=== PATIENT | female | born 2000 | race Caucasian/White ===

== ENCOUNTER 2021-10-03 12:43 | Outpatient (CLI) | payer BC, SELFPAY | END 2021-10-03 12:44 | disposition home or self-care (01) | PROVIDERS: Visit Provider Neurological Surgery | DX: M51.26 Other intervertebral disc displacement, lumbar region (principal); Z01.818 Encounter for other preprocedural examination | CPT/HCPCS: 36415; 86850; 86900; 86901 ==

== ENCOUNTER 2021-10-06 00:15 | Day surgery (SDC) | payer BC, SELFPAY ==
[2021-09-29 15:16] VITALS: BMI 50.1
--- NOTE | 2021-09-29 15:24 | PC.NURSE ---
Report to the Outpatient Waiting Room, entrance under the green pavilion located off [facility], at time __10:00AM__ on date ___10-06-21_. OR Time: __12:00PM__. - You and your visitor will be asked a series of questions to screen for COVID 19 for your protection. - Only one visitor is allowed at this time. - The patient visitor is requested to leave or wait in car when not with patient. - A mask is required within the hospital. Patients may have clear liquids (water, carbonated beverages, clear teas, apple juice) until 3 hours prior to surgery with a maximum of 20 ounces. NOTHING TO DRINK AFTER 9:00AM - No food from midnight until time of surgery Take the following medications with a SIP of water the morning of surgery: PAIN MEDICINE NEEDED Medications to discontinue per physician Date to take last dose Please no make-up, nail romanian, hairspray, perfume, deodorant, or body powder the day of surgery. No jewelry (including any body piercings) or valuables the day of surgery, leave them at home. Please take a shower or bath the night before, or the morning of, surgery with an antibacterial soap. Wear comfortable, loose fitting clothing. Children are encouraged to wear pajamas. - Jewelry must be removed prior to entering the operating room. Rings and piercings that are not removed may be cut off. - The hospital will not accept responsibility for valuables. - Please leave all valuables, including medications, at home the day of surgery. If you are going home after surgery, a licensed hammer driver must drive you home. - NO public transportation without another adult. - We recommend that an adult stay with you for 24 hours following discharge. - We also recommend that you do not drive, make important decision, drink alcoholic beverages, or take any drugs that were not prescribed by your health care provider for at least 24 hours after your discharge time. Follow any additional instructions given to you from your surgeon. If you or anyone in your household have experienced Covid symptoms in the past week, please notify your surgeon or the nurse liaison at the phone number below for possible testing. Telephone instructions given to ___PATIENTS and asked if any additional questions and then verbalized understanding. Patient advised to call surgeon office or pre surgery nurse liaison [phone] if any additional questions.
[2021-10-06] VITALS (8 sets, daily range): BP systolic 108–146; BP diastolic 52–96; PULSE 81–118; RESP 12–20; TEMP 36.1–36.3; O2SAT 95–99
--- NOTE | ~2021-10-06 | XR_ITS ---
EXAMINATION: XR fluoroscopy no charge DATE: 10/06/2021 14:15 INDICATION: Lumbar disc herniation. TECHNIQUE: A single lateral intraoperative fluoroscopic view of the lumbar spine was obtained. I was not present. Fluoroscopy exposure time was 8 seconds. COMPARISON: None. FINDINGS: There is an instrument posterior to L3-L4. IMPRESSION: 1. Instrument posterior to L3-L4. Reviewed, dictated and finalized at location A.
[2021-10-06] MEDS: LACTATED RINGERS 1,000 ML 30 ML IV CONT ×2 (10:25→14:27)
--- NOTE | 2021-10-06 10:37 | P.PNAN_ITS ---
Anes - Initial Pre Proc Eval Procedure: Operation Date: 10/06/21 12:00 Proposed Procedures p Left L3-4 Microscopic Lumbar Discectomy - Willy Smith MD Date/Time: 10/06/21 10:37 Surgeon: Willy Smith MD Pre Op Diagnosis: Lumbar Disc Herniation Patient Data Age: 21 Gender: F Height: 1.7 m Weight: 146.2 kg Allergies Allergy/AdvReac Type Severity Reaction Status Date / Time No Known Allergies Allergy Verified 10/06/21 09:56 Home Medications Medication Instructions Recorded Confirmed Type cyclobenzaprine 5 mg tablet 1 tablet PO BID PRN Muscle Spasm 09/29/21 10/06/21 History hydrocodone 5 mg-acetaminophen 325 1 tablet PO BID PRN Pain 09/29/21 10/06/21 History mg tablet norethindrone 1.5 mg-ethinyl 1 tablet PO DAILY 09/29/21 10/06/21 History estradiol 30 mcg(21)/iron 75 mg(7) tablet (June FE 1.5/30 (28)) Patient hx anesthesia problems: none Family hx anesthesia problems: none Results Review: All pre-operative results and documents have been reviewed as part of the pre- operative evaluation. [facility] Social History Social History Smoking status: Never smoker Second hand tobacco smoke exposure: Yes Alcohol intake: never Substance use: never Substance use type: does not use Living arrangements: with family Spiritual care concerns: No Anes - Eval Final PreProcedure Day of Procedure 10/06/21 10:37 Patient weight: super morbidly obese Heart: regular rate and rhythm Lungs: clear to auscultation Airway: Mallampati scale class II Neurological: alert and oriented Last oral intake: >/= 8 hours ASA classification: III Emergent: no Anesthetic plan: proceed Anesthesia type and monitoring: general ETT and standard monitoring Results Review: All pre-operative results and documents have been reviewed as part of the pre- operative evaluation. Informed Consent: The patient's anesthetic plan and its attendant risks and benefits were discussed with the patient/family/POA. Questions were solicited and answers provided to the satisfaction of the patient/family/POA.
--- NOTE | 2021-10-06 12:19 | WPDHPUPDATE1 ---
History and Physical Update Update Date/Time: 10/06/21 12:19 History and Physical has been reviewed, including an updated exam of the patient. There are NO changes in the patient's condition. Risks, benefits, and alternatives have been discussed and questions answered. Patient agrees to proceed with procedure.
--- NOTE | 2021-10-06 12:20 | P.HP_ITS ---
H&P: HPI History of Present Illness Date/Time: 10/06/21 12:20 Chief Complaint: Back and leg pain Narrative: Ms. Reddy is a 21-year-old female with a left L3-4 disc herniation causing back and leg pain who presents for decompression. She is not different than when we saw her last. She is not having any new bowel or bladder issues. She has no specific muscle group weakness. She has occasional dermatomal numbness. Review of Systems Review of Systems: Patient denies shortness of breath, cough, fever, chills, nausea, vomiting, weight loss, weight gain, urinary or bowel disturbance, chest pain. She has back and leg pain and stiffness as above. She is negative on 12 systems otherwise. [facility] Social History Social History Smoking status: Never smoker Second hand tobacco smoke exposure: Yes Alcohol intake: never Substance use: never Substance use type: does not use Living arrangements: with family Spiritual care concerns: No Meds Home Medications and Allergies Home Medications Medication Instructions Recorded Confirmed Type cyclobenzaprine 5 mg tablet 1 tablet PO BID PRN Muscle Spasm 09/29/21 10/06/21 History hydrocodone 5 mg-acetaminophen 325 1 tablet PO BID PRN Pain 09/29/21 10/06/21 History mg tablet norethindrone 1.5 mg-ethinyl 1 tablet PO DAILY 09/29/21 10/06/21 History estradiol 30 mcg(21)/iron 75 mg(7) tablet (Junel FE 1.5/30 (28)) Allergies Allergy/AdvReac Type Severity Reaction Status Date / Time No Known Allergies Allergy Verified 10/06/21 09:56 Vital Signs Vital Signs - 24 hr 10/06/21 10:40 Temperature 96.9 F L Pulse Rate 118 H Respiratory Rate 20 Blood Pressure 139/94 H Pulse Oximetry 99 Oxygen Delivery Room Air Exam Narrative: Patient is a normally developed, a normal appearing obese white female supine in a hospital bed in no acute distress. She is awake, alert, o riented x3, with good fund of knowledge, recall of events and fluent speech. Her face is symmetrical, tongue is midline, her pupils are equal reactive to light, extraocular movements are intact. She has no upper extremity drift, dysmetria or dyspraxia Strength is 5/5 in all muscle groups of the bilateral lower extremities. Sensation was intact to light touch throughout the lower extremities. Clear to auscultation Regular rate and rhythm Assessment and Plan Assessment and plan (1) Lumbar disc herniation: Code(s): M51.26 - Other intervertebral disc displacement, lumbar region Status: Acute Plan Ms. Reddy is a 21-year-old female with a left L3-4 herniated nucleus pulposus presents for microscopic lumbar diskectomy. I described to her again that operation, its risks, potential benefits, the operative and postoperative course in detail and answered all her questions personally. She indicates understanding and elects to proceed with that operation.
[2021-10-06] MEDS: ceFAZolin 3 GM/D5W 100 ML 100 ML IVPB (12:38)
[2021-10-06] MEDS: LIDO 1%/EPINEPHRINE 1:100,000 20 ML VIAL 10 ML INFILTRATE (13:20)
--- NOTE | 2021-10-06 14:25 | W.PM.PROC2 ---
Procedure Note - Detailed Date of Procedure 10/06/21 Pre-op Diagnosis Lumbar Disc Herniation Post-op Diagnosis Same Procedure Performed Left L3-4 microscopic lumbar diskectomy Surgeon Willy Smith MD [facility] Attendant [place] Anesthesia General Indications Ms. Reddy is a 21-year-old female with back and leg pain related to a disc herniation on the left at L3-4 who presents for decompression. Findings Disc herniation Description of Procedure The patient was brought to the operating room in the supine position, was sedated, intubated and placed under general anesthesia in routine fashion. She was then turned into the prone position on a open Chidi table. The area of operation on her back was examined, marked for incision, prepped and draped in routine sterile fashion. Incision was marked over the L3 and L4 spinous processes in the midline. This area was injected with 0.5% lidocaine with [id number] epinephrine. Intravenous antibiotics given prior to incision. Incision was made with a 10 blade scalpel down to the lumbodorsal fascia. A subperiosteal dissection the muscle soft tissue with the spinous process and lamina at L3-4 on the left was performed a Hohmann atrially and subperiosteal elevator and Bovie cautery. A verifying x-rays obtained to verify the level of operation. At L3-4 on the left the Midas-Constantino drill was used to perform a hemilaminectomy and medial facetectomy. Under microscopy the yellow ligament was lifted and removed piecemeal using Kerrison punches. The thecal sac was then retracted medially exposing subligamentous disc herniation below. The ligament was entered using 11 blade scalpel. An Berry curette curved curette No rongeur and nerve hook were used to push free and removed fragments of herniated disc from beneath the nerve. The nerve was followed toward its foramen and unroofed. A dental instrument and a nerve hook were used to feel underneath the nerve and in the foramen to confirm lack of compression which was confirmed. The wound was then copiously irrigated with bacitracin irrigation all bleeding was stopped with bipolar and Bovie cautery and Gelfoam thrombin powder. The wound was then closed in layered fashion with 2-0 Vicryl interrupted sutures in the lumbodorsal fascia and Jackson's layer. 3-0 Vicryl. Interrupted sutures were placed in the dermis and the skin was closed with a running 4-0 Monocryl subcuticular stitch and dressed with benzoin, Dermabond and Telfa and Tegaderm dressing. The patient was then allowed to wake up in the operating room and was taken to the recovery room in stable condition. There were no immediate complications of this operation. All counts were reported correct at the end of the case. Blood loss was 240 cc. The patient was neurologically at her baseline postoperatively. Estimated Blood Loss 240 IV Fluids 1,000 Complications None Condition Stable Disposition PACU
--- NOTE | 2021-10-06 14:40 | SUR.PHASEI ---
1432- Oral airway removed
[2021-10-06] MEDS: fentaNYL CITRATE INJ (*CRX) 100 MCG/2 ML VIAL 25 MCG IV PUSH ×6 (14:47→15:13)
[2021-10-06 15:10] LABS: HIV 1/2 Ab P24 Ag Result Negative (Negative); Hepatitis B Surface Anti Res Negative; Hepatitis C Virus Antibody Negative (Negative)
[2021-10-06] MEDS: oxyCODONE HCL (*CRX) 5 MG TAB IR PO (15:50)
== END 2021-10-06 16:41 | disposition home or self-care (01) ==
PROVIDERS: Visit Provider Neurological Surgery
PROC: (CPT 63030; principal; 2021-10-06 12:00)
DX: M51.26 Other intervertebral disc displacement, lumbar region (principal); M79.605 Pain in left leg; Z11.4 Encounter for screening for human immunodeficiency virus [HIV]; E66.01 Morbid (severe) obesity due to excess calories; Z68.43 Body mass index [BMI] 50.0-59.9, adult; Z79.891 Long term (current) use of opiate analgesic
CPT/HCPCS: 63030; 36415; 86703; 86706; 86803; 99199; A9270; G0432; J0690; J1100; J2250; J2405; J2704; J2710; J3010; J7120

== ENCOUNTER 2023-07-16 17:44 | Emergency (ER) | payer BC, SELFPAY ==
--- NOTE | ~2023-07-16 | XR_ITS ---
EXAM: XR hand RT min 3V DATE: 07/16/2023 18:50 HISTORY: fall . COMPARISON: None available. FINDINGS: Normal mineralization. No fracture or dislocation. Hyperextended third and fifth PIP joint s. No lytic or blastic lesion. Joint spaces are maintained. No erosion or periosteal change. Soft tis sues within normal limits. IMPRESSION: Hyperextended third and fifth PIP joints, may reflect soft tissue injury, correlate for p ain/tenderness. Reviewed, dictated and finalized at location K. IMPRESSION: Hyperextended third and fifth PIP joints, may reflect soft tissue i njury, correlate for pain/tenderness.
--- NOTE | ~2023-07-16 | XR_ITS ---
EXAM: XR knee LT min 4V DATE: 07/16/2023 18:50 HISTORY: fall . COMPARISON: None available. FINDINGS: Normal mineralization. No fracture or dislocation. No lytic or blastic lesion. Mild medial compartment osteoarthritic change. Mild quadriceps enthesopathy. No erosion or periosteal change. So ft tissues within normal limits. IMPRESSION: No acute osseous finding in the left knee. Reviewed, dictated and finalized at location K.
[2023-07-16 18:00] VITALS: BP 172/90; PULSE 99; RESP 20; TEMP 36.6; O2SAT 100
--- NOTE | 2023-07-16 19:37 | ED.GENADULT ---
HPI - General Adult General Chief complaint: Extremity Injury, Lower Stated complaint: fall, pain to left leg Time Seen by Provider: 07/16/23 19:00 History of Present Illness HPI narrative: This is a 22-year-old female presenting after a ground level fall. She fell onto her left knee and right hand. She has some pain to the area and minor abrasions. She is concerned she had some loss of sensation below the left knee. No motor deficits. Related Data Home Medications Medication Instructions Recorded Confirmed norethindrone 1.5 mg-ethinyl 1 tablet PO DAILY 09/29/21 10/06/21 estradiol 30 mcg(21)/iron 75 mg(7) tablet (Junel FE 1.5/30 (28)) Allergies Allergy/AdvReac Type Severity Reaction Status Date / Time No Known Allergies Allergy Verified 07/16/23 18:06 [facility] Past Medical History Medical History Hidradenitis Lumbar disc herniation Surgical History Surgical History H/O Spinal surgery Family History Family History Other Hypertension Social History Social History Smoking status: Never smoker Second hand tobacco smoke exposure: Yes Alcohol intake: never Substance use: never Substance use type: does not use Living arrangements: with family Spiritual care concerns: No Exam Narrative: APPEARANCE: No apparent distress. Head: atraumatic. EYES: EOMI, NOSE: Atraumatic NECK: Trachea midline RESPIRATORY: No increased rate of breathing CARDIOVASCULAR: RRR, ABDOMINAL: Non-distended MUSCULOSKELETAl: Minor abrasion over the left knee. Patient is neurovascular intact in lower extremities. minor abrasions over the right hand. Extension and flexion intact in all fingers. Cap refill. NEURO: Alert. Moving 4/4 extremities SKIN:: Warm, dry. Normal color PSYCHIATRIC: Normal affect Course Vital Signs Vital signs: Vital Signs Temperature 97.8 F 07/16/23 18:00 Pulse Rate 99 07/16/23 18:00 Respiratory Rate 20 07/16/23 18:00 Blood Pressure 172/90 H 07/16/23 18:00 Pulse Oximetry 100 04/29/24 18:00 Oxygen Delivery Room Air 07/16/23 18:00 Temperature 97.8 F 07/16/23 18:00 Pulse Rate 99 07/16/23 18:00 Respiratory Rate 20 07/16/23 18:00 Blood Pressure 172/90 H 07/16/23 18:00 Pulse Oximetry 100 07/16/23 18:00 Oxygen Delivery Room Air 07/16/23 18:00 Medical Decision Making [facility] Narrative Medical decision making narrative: -Course: 22-year-old female presenting after a ground level fall with knee pain and hand pain. X-rays negative for fracture. Physical exam unremarkable patient has some loss of sensation over her gonzalez but no motor deficits. Patient will be trialed on a course of NSAID and primary care follow-up. -DDX includes but is not limited to: Soft tissue injury, bony injury -Independent interpretation of studies: X-rays negative for fracture -Interventions: Tylenol -Shared decision making / Disposition:discharged -RX tylenol Vital Signs Vital Signs: Vital Signs Temperature 97.8 F 07/16/23 18:00 Pulse Rate 99 07/16/23 18:00 Respiratory Rate 20 07/16/23 18:00 Blood Pressure 172/90 H 07/16/23 18:00 Pulse Oximetry 100 07/16/23 18:00 Oxygen Delivery Room Air 07/16/23 18:00 Temperature 97.8 F 07/16/23 18:00 Pulse Rate 99 07/16/23 18:00 Respiratory Rate 20 07/16/23 18:00 Blood Pressure 172/90 H 07/16/23 18:00 Pulse Oximetry 100 07/16/23 18:00 Oxygen Delivery Room Air 07/16/23 18:00 Discharge Plan Discharge Clinical Impression: Acute knee pain, Arthritis pain, hand, Loss of sensation Patient Disposition: Home, Self-Care Condition: Stable Instructions: Antibiotic Form, Knee Pain (ED) Additional Instructions: Please take Motrin Tylenol for pain. Follow-u
[2023-07-16] MEDS: ACETAMINOPHEN 500 MG TABLET 1000 MG PO (20:16)
[2023-07-16 20:18] VITALS: BP 173/102; PULSE 98; RESP 20; TEMP 37; O2SAT 98
== END 2023-07-16 20:26 | disposition home or self-care (01) ==
LOC: ANHED 19:49
PROVIDERS: Emergency Provider Emergency Medicine
DX: S89.92XA Unspecified injury of left lower leg, initial encounter (principal); R20.0 Anesthesia of skin; M19.041 Primary osteoarthritis, right hand; W18.39XA Other fall on same level, initial encounter
CPT/HCPCS: 73130; 73564; 99284; A9270